=== PATIENT | male | born 1995 | race Asian ===

== ENCOUNTER 2018-12-12 14:32 | Emergency (ER) | payer SELFPAY ==
[~2018-12-12] VITALS: Ht 167.6 cm; Wt 80.0 kg
[2018-12-12] MEDS ORDERED: SODIUM CHLORIDE 0.9% 1,000 ML IV ONE ×3 (17:01→23:36)
[2018-12-12] MEDS ORDERED: LORAZEPAM 2MG/ML CPJ IV ONE ×2 (17:15→23:45)
[2018-12-12 17:34] LABS: CHLORIDE 96 mEq/L (98-107)
[2018-12-12 17:36] LABS: BASOPHILS % 0.1 % (0.0-2.0); HEMATOCRIT. 45.5 % (42.0-52.0); LYMPHOCYTES % 14.3 % (20.0-50.0); MEAN CORPUSCULAR HEMOGLOBIN 29.3 pg (28.0-32.0); MEAN CORPUSCULAR VOLUME 83.5 fL (80.0-94.0); MEAN PLATELET VOLUME 7.8 fl (7.4-10.4); MONOCYTES % 4.7 % (2.0-8.0); NEUTROPHILS % 80.9 % (40.0-76.0); PLATELET 202 x1000/uL (130-400); RED BLOOD CELL COUNT 5.45 mill/uL (4.7-6.1); RED CELL DISTRIBUTION WIDTH 12.9 % (11.6-14.6)
[2018-12-12 17:41] LABS: ETHANOL BLOOD < 10 mg/dL
[2018-12-12 17:56] LABS: CREATINE KINASE 1392 IU/L (39-308)
[2018-12-12 19:43] LABS: *AMPHETAMINES SCREEN URINE PRESUMTIVE POSITIVE (NEGATIVE); *BARBITURATES SCREEN URINE NEGATIVE (NEGATIVE); *BENZODIAZEPINES SCREEN URINE NEGATIVE (NEGATIVE); *COCAINE SCREEN URINE NEGATIVE (NEGATIVE); METHADONE URINE SCREEN NEGATIVE (NEGATIVE); OPIATES URINE SCREEN NEGATIVE (NEGATIVE)
[2018-12-12 19:44] LABS: CANNABINOID URINE SCREEN NEGATIVE (NEGATIVE); PHENCYCLIDINE URINE SCREEN NEGATIVE (NEGATIVE)
[2018-12-13] MEDS ORDERED: ADENOSINE 3 MG/ML 2ML VIAL IV ONE ×3 (11:30→11:33)
[2018-12-13] MEDS ORDERED: SODIUM CHLORIDE 0.9% 1,000 ML IV ONE ×2 (11:45→17:34)
[2018-12-13] MEDS ORDERED: LORAZEPAM 2MG/ML CPJ IV ONE (12:00)
[2018-12-13] MEDS ORDERED: HALOPERIDOL LACTATE 5MG/ML VIAL IM STA (13:13)
[2018-12-13] MEDS ORDERED: LORAZEPAM 2MG/ML CPJ IV STA (13:13)
[2018-12-13] MEDS ORDERED: DIPHENHYDRAMINE 50MG/ML VIAL IM STA (13:13)
[2018-12-13 19:53] LABS: CREATINE KINASE MB FRACTION 2.8 ng/mL (0.5-3.6)
[2018-12-14 06:15] VITALS: BP 131/65
== END 2018-12-14 06:15 | disposition home or self-care (01) ==
LOC: ER 14:32
DX: T43.621A Poisoning by amphetamines, accidental (unintentional), initial encounter (principal); R00.2 Palpitations; M62.82 Rhabdomyolysis; R29.0 Tetany; F41.9 Anxiety disorder, unspecified; R03.0 Elevated blood-pressure reading, without diagnosis of hypertension; Y92.89 Other specified places as the place of occurrence of the external cause
CPT/HCPCS: 36415; 80053; 80305; 80307; 80320; 80329; 82550; 84443; 85025; 93005; 96361; 96372; 96374; 96376; 99283; J2060; J7030; Z7610; G0480